=== PATIENT | female | born 1930 | race Caucasian/White ===

== ENCOUNTER 2018-04-10 07:54 | Day surgery (SDC) | payer OTHER, BC ==
[~2018-04-10] VITALS: Ht 162.6 cm; Wt 51.7 kg
[~2018-04-10 07:54] MED LIST: HYDROCHLOROTHIA25 MG PO; LIPITOR40 MG PO; NEXIUM40 MG PO; SYNTHROID25 MCG PO; XANAX0.25 MG PO
[2018-04-10 08:36] VITALS: BP 200/88
[2018-04-10 17:09] VITALS: BP 176/84
[2018-04-10 18:03] VITALS: BP 172/79
== END 2018-04-10 18:05 | disposition home or self-care (01) ==
LOC: SDC 07:54
DX: C50.212 Malignant neoplasm of upper-inner quadrant of left female breast (principal); Z17.0 Estrogen receptor positive status [ER+]; Z82.49 Family history of ischemic heart disease and other diseases of the circulatory system
CPT/HCPCS: 78195; 78999; 88305; 88307; 88342 TC; A9541; J0690; J1100; J1170; J2405; J3010; S0020